=== PATIENT | female | born 1995 | race Caucasian/White ===

== ENCOUNTER 2023-08-16 15:34 | Emergency (ER) | payer BC ==
[2023-08-16] MEDS ORDERED: Adacel Vial IM ONE (16:28)
[2023-08-16] MEDS: Adacel Vial IM ONE (16:29)
--- NOTE | 2023-08-16 16:52 | ERPHSYRPT ---
- History of Present Illness Time Seen by Provider: 08/16/23 15:44 Source: patient Exam Limitations: no limitations Patient Subjective Stated Complaint: laceration to left index, cut on small knife Triage Nursing Assessment: pt alert, walked in, resp easy, skin w/d/p.has laceration to left indext finger, no bleeding Physician History: 27 years old [id number] female presented in the ER with a superficial cut left index finger distal phalanx with an executive knife while working at home. There was bleeding initially, stopped with applying pressure. No difficulty movements at interphalangeal joints. No distal numbness or tingling. No injury to the nail. Unsure about tetanus status. Allergies/Adverse Reactions: No Known Drug Allergies Allergy (Verified 08/16/23 15:43) Home Medications: Sertraline HCl 50 mg [Zoloft 50 mg Tablet] 50 mg PO DAILY 07/14/23 [History] buPROPion HCL [Wellbutrin Xl] 300 mg PO DAILY 07/14/23 [History] Hx Tetanus, Diphtheria Vaccination/Date Given: No Hx Influenza Vaccination/Date Given: No Hx Pneumococcal Vaccination/Date Given: No Immunizations Up to Date: Yes Travel Risk - International Travel Have you traveled outside of the country in past 3 weeks: No - Emerging Infectious Disease Are you exhibiting symptoms associated with any current EIDs: No - Review of Systems Constitutional: No Symptoms Ears, Nose, & Throat: No Symptoms Respiratory: No Symptoms Cardiac: No Symptoms Genitourinary Symptoms: No Symptoms Musculoskeletal: Injury Skin: Skin Lesions Neurological: No Symptoms - Past Medical History Pertinent Past Medical History: No Neurological History: No Pertinent History ENT History: No Pertinent History Cardiac History: No Pertinent History Respiratory History: No Pertinent History Endocrine Medical History: No Pertinent History Musculoskeletal History: No Pertinent History GI Medical History: No Pertinent History History: No Pertinent History Psycho-Social History: Anxiety, Depression Female Reproductive Disorders: No Pertinent History - Past Surgical History Past Surgical History: Yes Neuro Surgical History: No Pertinent History Cardiac: No Pertinent History Respiratory: No Pertinent History Gastrointestinal: No Pertinent History Genitourinary: No Pertinent History Musculoskeletal: No Pertinent History Female Surgical History: No Pertinent History Other Surgical History: lazy eye surgical repair at 5yo. wisdom teeth extract ion. - Female History Hx Last Menstrual Period: 5 days ago Hx Now: No - Social History Smoking Status: Former smoker Exposure to second hand smoke: No Drug Use: marijuana - Social Determinants of Health Will the patient participate in the screening: Yes Do you worry about a steady place to live?: No Do you have any problems with any of the following?: No known problems In the past 12 months,have you had to go without utilities?: No Transportation Issues: No Has anyone in your support network made you feel unsafe?: No Have you or anyone in your house had to go without enough: No - Nursing Vital Signs Nursing Vital Signs: Pain Scale Pain Intensity 0 - Physical Exam General Appearance: no apparent distress Eye Exam: PERRL/EOMI Neck Exam: normal inspection, full range of motion Respiratory Exam: normal breath sounds, lungs clear Cardiovascular Exam: regular rate/rhythm, normal heart sounds Extremity Exam: other (1.25 cm laceration left index finger anterolateral asp ect. No active spurting or oozing. Distal neurovascular intact. Intact range of motion at interphalangeal joints.) Neurologic Exam: alert, oriented x 3, cooperative Skin Exam: normal color SpO2 Interpretation: normal SpO2: 96 O2 Delivery: Room Air Procedures - Laceration/Wound Repair Left Finger Time of Procedure: 16:30 Wound Location: Left Wound Length (cm): 1.25 Wound's Depth, Shape: superficial, linear Wound Explored: clean Irrigated: Yes Hibiclens Prep: Yes Wound Repaired With: Steri-strips, Dermabond Layer Closure?: No Sterile Dressing Applied?: Yes Splint Applied?: No Ordered Tests: Medication Summary Discontinued Medications Generic Name Dose Route Start Last Admin Trade Name Manoj PRN Reason Stop Dose Admin Diphtheria/Tetanus/Acell Pertussis 0.5 ml 08/16/23 16:26 08/16/23 16:29 Tdap --Diph,Pertuss(Acell),Tet Vac/Pf 0.5 Ml Vial IM 08/16/23 16:27 0.5 ml .ONCE ONE Administration Diphtheria/Tetanus/Acell Pertussis Confirm 08/16/23 16:28 Tdap --Diph,Pertuss(Acell),Tet Vac/Pf 0.5 Ml Vial Administered 08/16/23 16:29 Dose 0.5 ml IM .STK-MED ONE - Progress Progress: improved Progress Note: 08/16/23 16:51 27 years old is evaluated for superficial laceration left index. No active bleeding or spurting. Clean wound. Discussed with patient about repair with sutures versus Dermabond and Steri-Strip and closure is done with Dermabond and Steri-Strip. Lawson taping done. Discussed signs symptoms of worsening/laceration care needing return to ER which she seems understanding. Tetanus is updated. Counseled pt/family regarding: diagnosis, need for follow-up Medical Desision Making - Risk of complications The pt has a mod risk of morbidity or mortality based on: Need for minor surgical intervention in patient with know risk factors - Departure Departure Disposition: Home Clinical Impression: Finger laceration Condition: Stable Critical Care Time: No Referrals: JAY CRAWFORD MD [Primary Care Provider] - Follow up with PCP 1 day Instructions: Laceration Repair With Glue (DC) Additional Instructions: Tylenol ibuprofen as needed. Avoid exertional activities. Follow-up with primary care for reevaluation. Return to ER for increasing pain swelling redness, discharge or if develop fever chills etc.
[2023-08-16 16:54] VITALS: O2SAT 96
== END 2023-08-16 16:58 | disposition home or self-care (01) ==
LOC: ED 15:34
DX: S61.211A Laceration without foreign body of left index finger without damage to nail, initial encounter (principal); W26.0XXA Contact with knife, initial encounter; Z79.899 Other long term (current) drug therapy; Z23 Encounter for immunization
CPT/HCPCS: 12001; 90471; 90715; 99282

== ENCOUNTER 2024-02-18 15:12 | Emergency (ER) | payer BC ==
--- NOTE | 2024-02-18 16:42 | ERPHSYRPT ---
- History of Present Illness Time Seen by Provider: 02/18/24 16:42 Source: patient, family Exam Limitations: no limitations Physician History: This 28-year-old white female patient who has a history of depression and anxiety and is a patient of Dr. Crawford who arrives by private vehicle with her significant other. Patient is concerned because of syncopal episodes x 3 in total. A few weeks ago patient had an episode of syncope. It was unexplained. She did not hit her head. Patient is not on any new medications. This past Sunday prior to arrival, she had 2 episodes. At that time she admits to drinking 2 alcohol drinks and having half a gummy of cannabis. She has noticed in the last few weeks she has had headaches. She currently has no chest pain. She is not short of breath. Her headache is mild. She has no visual changes. She has no abdominal pain. Her last menstrual period was on 02/14/2024 Severity: mild Modifying Factors: Improves With: nothing Associated Symptoms: headaches (Mild generalized), No vomiting, No abdominal pain, No shortness of breath, No cough, No chest pain, No weakness Allergies/Adverse Reactions: No Known Drug Allergies Allergy (Verified 02/18/24 16:34) Home Medications: Sertraline HCl 50 mg [Zoloft 50 mg Tablet] 50 mg PO DAILY 07/14/23 [History] buPROPion HCL [Wellbutrin Xl] 300 mg PO DAILY 07/14/23 [History] Hx Tetanus, Diphtheria Vaccination/Date Given: No Hx Influenza Vaccination/Date Given: No Hx Pneumococcal Vaccination/Date Given: No Travel Risk - International Travel Have you traveled outside of the country in past 3 weeks: No - Emerging Infectious Disease Are you exhibiting symptoms associated with any current EIDs: No - Review of Systems Constitutional: No Symptoms Eyes: No Symptoms Ears, Nose, & Throat: No Symptoms Respiratory: No Symptoms Cardiac: Syncope (2 days ago) Abdominal/Gastrointestinal: No Symptoms Genitourinary Symptoms: No Symptoms Musculoskeletal: No Symptoms Skin: No Symptoms Neurological: Headache Psychological: No Symptoms Endocrine: No Symptoms Hematologic/Lymphatic: No Symptoms Immunological/Allergic: No Symptoms All Other Systems: Reviewed and Negative - Past Medical History Pertinent Past Medical History: No Neurological History: No Pertinent History ENT History: No Pertinent History Cardiac History: No Pertinent History Respiratory History: No Pertinent History Endocrine Medical History: No Pertinent History Musculoskeletal History: No Pertinent History GI Medical History: No Pertinent History History: No Pertinent History Psycho-Social History: Anxiety, Depression Female Reproductive Disorders: No Pertinent History - Past Surgical History Past Surgical History: Yes Neuro Surgical History: No Pertinent History Cardiac: No Pertinent History Respiratory: No Pertinent History Gastrointestinal: No Pertinent History Genitourinary: No Pertinent History Musculoskeletal: No Pertinent History Female Surgical History: No Pertinent History Other Surgical History: lazy eye surgical repair at 5yo. wisdom teeth extraction. - Female History Hx Last Menstrual Period: 5 days ago - Social History Smoking Status: Former smoker Exposure to second hand smoke: No Drug Use: marijuana - Social Determinants of Health Will the patient participate in the screening: Yes Do you worry about a steady place to live?: No In the past 12 months,have you had to go without utilities?: No Transportation Issues: No Has anyone in your support network made you feel unsafe?: No Have you or anyone in your house had to go without enough: No - Nursing Vital Signs Nursing Vital Signs: Initial Vital Signs Pulse Rate 70 02/18/24 16:33 Blood Pressure 125/75 02/18/24 16:33 O2 Sat by Pulse Oximetry 100 02/18/24 16:33 Pain Scale Pain Intensity 4 - Physical Exam General Appearance: no apparent distress, alert, anxiety Eye Exam: PERRL/EOMI, eyes nml inspection Ears, Nose, Throat Exam: normal ENT inspection, moist mucous membranes Neck Exam: normal inspection, non-tender, supple, full range of motion Respiratory Exam: normal breath sounds, lungs clear, airway intact, No chest tenderness, No respiratory distress Cardiovascular Exam: regular rate/rhythm, normal heart sounds, normal peripheral pulses Gastrointestinal/Abdomen Exam: soft, normal bowel sounds, No tenderness Pelvic Exam: not done Rectal Exam: not done Back Exam: normal inspection, normal range of motion, No CVA tenderness, No vertebral tenderness Extremity Exam: normal inspection, normal range of motion, pelvis stable Neurologic Exam: alert, oriented x 3, cooperative, inside sales account executive II-XII nml as tested, nml cerebellar function, nml station & gait, sensation nml Skin Exam: normal color, warm, dry Lymphatic Exam: No adenopathy SpO2 Interpretation: normal O2 Delivery: Room Air - Course Nursing assessment & vital signs reviewed: Yes EKG Interpreted by Me: RATE (75), Sinus Rhythm, NORMAL AXIS, NORMAL INTERVALS, NORMAL QRS, Other (No acute ischemia on today's twelve-lead EKG. QTc is 428) Ordered Tests: Active Orders 24 hr Category Date Time Status EKG-ER Only STAT Care 02/18/24 17:02 Active Pulse Oximetry (ED) STAT Care 02/18/24 17:02 Active HEAD WITHOUT CONTRAST [CT] Stat Exams 02/18/24 17:02 Taken CBC W DIFF Stat Lab 02/18/24 17:10 Completed CMP Stat Lab 02/18/24 17:10 Completed ETHYL ALCOHOL Stat Lab 02/18/24 17:10 Completed HCG QUALITATIVE, SERUM Stat Lab 02/18/24 17:10 Completed UA W/RFX UR CULTURE Stat Lab 02/18/24 17:07 Completed Urine Triage Profile Stat Lab 02/18/24 17:07 Completed Holter Monitor ONCE RT 02/18/24 18:44 Active Lab/Rad Data: Laboratory Result Diagrams 02/18/24 17:10 02/18/24 17:10 Laboratory Results 02/18/24 02/18/24 02/18/24 Range/Units 17:10 17:10 17:10 WBC 5.0 (3.98-10.04) x10^3/uL RBC 4.44 (3.93-5.22) x10^6/uL Hgb 13.2 (11.2-15.7) g/dL Hct 39.3 (34.1-44.9) % MCV 88.5 (79.4-94.8) fL MCH 29.7 (25.6-32.2) pg MCHC 33.6 (32.2-35.5) g/dL RDW 11.8 (11.7-14.4) % Plt Count 251 (182-369) x10^3/uL MPV 10.1 (9.4-12.3) fL Gran % 60.8 (34.0-71.1) % Immature Gran % (Auto) 0.2 (0.001-0.429) % Nucleat RBC Rel Count 0.0 (0.00-0.2) % Eos # (Auto) 0.12 (0.04-0.36) x10^3/uL Immature Gran # (Auto) 0.01 (0.001-0.031) x10^3u/L Absolute Lymphs (auto) 1.53 (1.18-3.74) x10^3/uL Absolute Monos (auto) 0.29 (0.24-0.86) x10^3/uL Absolute Nucleated RBC 0.00 (0.00-0.012) x10^3u/L Lymphocytes % 30.4 (19.3-51.7) % Monocytes % 5.8 (4.7-12.5) % Eosinophils % 2.4 (0.7-5.8) % Basophils % 0.4 (0.1-1.2) % Absolute Granulocytes 3.06 (1.56-6.13) x10^3/uL Basophils # 0.02 (0.01-0.08) x10^3/uL Sodium 138 (135-145) mmol/L Potassium 4.1 (3.5-5.1) mmol/L Chloride 103 (98-107) mmol/L Carbon Dioxide 29 (22-30) mmol/L Anion Gap 9.7 (5-15) MEQ/L BUN 21 H (7-17) mg/dL Creatinine 1.01 (0.52-1.04) mg/dL Estimated GFR 78.3 ML/MIN Glucose 89 (74-106) mg/dL Calcium 9.5 (8.4-10.2) mg/dL Total Bilirubin 0.30 (0.2-1.3) mg/dL AST 40 H (14-36) U/L ALT 28 (0-35) U/L Alkaline Phosphatase 71 (38-126) U/L Serum Total Protein 7.3 (6.3-8.2) g/dL Albumin 4.6 (3.5-5.0) g/dL Serum HCG, Qual NEGATIVE (NEGATIVE) Urine Color (Yellow) Urine Appearance (Clear) Urine pH (4.6-8.0) Ur Specific [place] (1.005-1.030) Urine Protein (Negative) Urine Glucose (UA) (Negative) mg/dL Urine Ketones (Negative) Urine Blood (Negative) Urine Nitrite (Negative) Urine Bilirubin (Negative) Urine Urobilinogen (0.2) mg/dL Ur Leukocyte Esterase (Negative) U Hyaline Cast (Auto) (0-2) /LPF Urine Microscopic RBC (0-5) /HPF Urine Microscopic WBC (0-5) /HPF Ur Epithelial Cells (None Seen) /HPF Urine Bacteria (None Seen) /HPF Urine Culture Reflexed (NO) Urine Opiates Level (NEGATIVE) Ur Methadone (NEGATIVE) Urine Barbiturates (NEGATIVE) Ur Phencyclidine (PCP) (NEGATIVE) Urine Amphetamine (NEGATIVE) U Benzodiazepine Level (NEGATIVE) Urine Cocaine (NEGATIVE) Urine Marijuana (THC) (NEGATIVE) Ethyl Alcohol < 10 (0-10) mg/dL 02/18/24 02/18/24 Range/Units 17:07 17:07 WBC (3.98-10.04) x10^3/uL RBC (3.93-5.22) x10^6/uL Hgb (11.2-15.7) g/dL Hct (34.1-44.9) % MCV (79.4-94.8) fL MCH (25.6-32.2) pg MCHC (32.2-35.5) g/dL RDW (11.7-14.4) % Plt Count (182-369) x10^3/uL MPV (9.4-12.3) fL Gran % (34.0-71.1) % Immature Gran % (Auto) (0.001-0.429) % Nucleat RBC Rel Count (0.00-0.2) % Eos # (Auto) (0.04-0.36) x10^3/uL Immature Gran # (Auto) (0.001-0.031) x10^3u/L Absolute Lymphs (auto) (1.18-3.74) x10^3/uL Absolute Monos (auto) (0.24-0.86) x10^3/uL Absolute Nucleated RBC (0.00-0.012) x10^3u/L Lymphocytes % (19.3-51.7) % Monocytes % (4.7-12.5) % Eosinophils % (0.7-5.8) % Basophils % (0.1-1.2) % Absolute Granulocytes (1.56-6.13) x10^3/uL Basophils # (0.01-0.08) x10^3/uL Sodium (135-145) mmol/L Potassium (3.5-5.1) mmol/L Chloride (98-107) mmol/L Carbon Dioxide (22-30) mmol/L Anion Gap (5-15) MEQ/L BUN (7-17) mg/dL Creatinine (0.52-1.04) mg/dL Estimated GFR ML/MIN Glucose (74-106) mg/dL Calcium (8.4-10.2) mg/dL Total Bilirubin (0.2-1.3) mg/dL AST (14-36) U/L ALT (0-35) U/L Alkaline Phosphatase (38-126) U/L Serum Total Protein (6.3-8.2) g/dL Albumin (3.5-5.0) g/dL Serum HCG, Qual (NEGATIVE) Urine Color Yellow (Yellow) Urine Appearance Clear (Clear) Urine pH 7.0 (4.6-8.0) Ur Specific [place] <=1.005 (1.005-1.030) Urine Protein Negative (Negative) Urine Glucose (UA) Negative (Negative) mg/dL Urine Ketones Negative (Negative) Urine Blood Negative (Negative) Urine Nitrite Negative (Negative) Urine Bilirubin Negative (Negative) Urine Urobilinogen 0.2 (0.2) mg/dL Ur Leukocyte Esterase Negative (Negative) U Hyaline Cast (Auto) NONE SEEN (0-2) /LPF Urine Microscopic RBC 0-2 (0-5) /HPF Urine Microscopic WBC 0-2 (0-5) /HPF Ur Epithelial Cells None Seen (None Seen) /HPF Urine Bacteria None Seen (None Seen) /HPF Urine Culture Reflexed NO (NO) Urine Opiates Level NEGATIVE (NEGATIVE) Ur Methadone NEGATIVE (NEGATIVE) Urine Barbiturates NEGATIVE (NEGATIVE) Ur Phencyclidine (PCP) NEGATIVE (NEGATIVE) Urine Amphetamine NEGATIVE (NEGATIVE) U Benzodiazepine Level NEGATIVE (NEGATIVE) Urine Cocaine NEGATIVE (NEGATIVE) Urine Marijuana (THC) NEGATIVE (NEGATIVE) Ethyl Alcohol (0-10) mg/dL - Progress Progress: improved, re-examined Progress Note: 02/18/24 17:40 My medical decision making of the assignment of moderate complexity is based on review of the patient's past medical history, review of patient medication list, reviewed patient drug allergy list, history present illness and physical findings on examination. The workup in this patient includes urinalysis, urine test, urine drug triage, CBC, CMP, twelve-lead EKG, CT scan of the head. Likely, the patient will be placed on an outpatient 48-hour Holter monitor. Differential diagnosis includes but is not limited to dehydration, urinary tract infection, arrhythmia, anemia, , acute intracranial abnormality 02/18/24 19:17 I interpreted the patient's laboratory data results. Based on the laboratory data results, the patient does not have an acute, emergent medical issue. The CT scan of the head without contrast was interpreted by the radiologist and I reviewed the impression. The impression is normal head CT without contrast Counseled pt/family regarding: lab results, diagnosis, need for follow-up, rad results Medical Desision Making - Independent Historian Additional History obtained from: Relative/friend - Diagnostic Testing Diagnostic test were ordered, analyzed, and reviewed by me: Yes Radiological Interpretation: Reviewed by me, Teleradiologist Report - Risk of complications Minimal Risk: Minimal risk of morbidity - Departure Departure Disposition: Home Clinical Impression: Syncopal episodes Condition: Stable Critical Care Time: No Referrals: JAY CRAWFORD MD [Primary Care Provider] - Follow up/PCP as directed Additional Instructions: Drink plenty of fluids. Avoid alcohol or other types of intoxicants. Call your primary care provider tomorrow, 02/19/2024, to make arrangements for follow-up appointment for further evaluation and management. Wear the Holter monitor and follow the instructions in terms of use and when to return the monitor.
[2024-02-18 16:45] VITALS: RESP 18; TEMP 99.1
[2024-02-18 17:15] LABS: Absolute Neutrophil Ct (ANC) 3.06 x10^3/uL (1.56-6.13); BASOPHIL % 0.4 % (0.1-1.2); Basophil (Absolute #) 0.02 x10^3/uL (0.01-0.08); Eosinophil % 2.4 % (0.7-5.8); Eosinophil (Absolute #) 0.12 x10^3/uL (0.04-0.36); Hematocrit 39.3 % (34.1-44.9); Hemoglobin 13.2 g/dL (11.2-15.7); IMMATURE GRAN # 0.01 x10^3u/L (0.001-0.031); IMMATURE GRAN % 0.2 % (0.001-0.429); Lymphocyte (Absolute #) 1.53 x10^3/uL (1.18-3.74); Lymphocytes % 30.4 % (19.3-51.7); Mean Cell Volume 88.5 fL (79.4-94.8); Mean Corpuscular Hemoglobin 29.7 pg (25.6-32.2); Mean Corpuscular Hgb Concent. 33.6 g/dL (32.2-35.5); Mean Platelet Volume 10.1 fL (9.4-12.3); Monocyte (Absolute #) 0.29 x10^3/uL (0.24-0.86); Monocytes % 5.8 % (4.7-12.5); Neutrophil % 60.8 % (34.0-71.1); Platelet Count 251 x10^3/uL (182-369); Red Blood Count 4.44 x10^6/uL (3.93-5.22); Red Cell Distribution Width 11.8 % (11.7-14.4)
[2024-02-18 17:18] VITALS: O2SAT 98
[2024-02-18 17:28] LABS: ALBUMIN 4.6 g/dL (3.5-5.0); ALKALINE PHOSPHATASE 71 U/L (38-126); ANION GAP 9.7 MEQ/L (5-15); BLOOD UREA NITROGEN 21 mg/dL (7-17); CHLORIDE 103 mmol/L (98-107); Calcium 9.5 mg/dL (8.4-10.2); Carbon Dioxide 29 mmol/L (22-30); Creatinine 1 1.01 mg/dL (0.52-1.04); EST GLOMERULAR FILTRATION RATE 78.3 ML/MIN; ETHYL ALCOHOL < 10 mg/dL (0-10); Glucose 89 mg/dL (74-106); Potassium 4.1 mmol/L (3.5-5.1); SGOT/AST 40 U/L (14-36); SGPT/ALT 28 U/L (0-35); SODIUM 138 mmol/L (135-145); Total Protein 7.3 g/dL (6.3-8.2)
[2024-02-18 17:38] LABS: HCG SERUM TEST NEGATIVE (NEGATIVE)
[2024-02-18 17:43] LABS: Appearance Clear (Clear); Bacteria None Seen /HPF (None Seen); Bilirubin Negative (Negative); Blood Negative (Negative); Epithelial Cells None Seen /HPF (None Seen); Glucose, Urine Negative (Negative); Hyaline Casts NONE SEEN /LPF (0-2); Ketones Negative (Negative); Leukocyte Esterase Negative (Negative); Nitrite Negative (Negative); Protein,Urine Dip Negative (Negative); RBC 0-2 /HPF (0-5); Specific Gravity <=1.005 (1.005-1.030); Urobilinogen 0.2 mg/dL (0.2); WBC 0-2 /HPF (0-5)
[2024-02-18 17:55] LABS: Amphetamine,Urine NEGATIVE (NEGATIVE); Barbiturate,Urine NEGATIVE (NEGATIVE); Benzodiazepine,Urine NEGATIVE (NEGATIVE); Cocaine,Urine NEGATIVE (NEGATIVE); Methadone,Urine NEGATIVE (NEGATIVE); Opiate,Urine NEGATIVE (NEGATIVE); PCP,Urine NEGATIVE (NEGATIVE); THC,Urine NEGATIVE (NEGATIVE)
[2024-02-18 19:34] VITALS: BP 129/72; PULSE 77
--- NOTE | 2024-02-19 08:32 | XRAY ---
Indication: Syncope. Multiple contiguous axial images obtained through the head without contrast. Comparison: None Normal appearing brain parenchyma, ventricles, and bony calvarium. Visualized paranasal sinuses and mastoid air cells are clear. Impression: Normal CT head without contrast exam.
--- NOTE | 2024-02-25 09:20 | HOLTER ---
HOLTER MONITOR DATE OF PROCEDURE: 02/18/24 PROCEDURE: Holter monitor. REFERRING PHYSICIAN: Aris Chua MD and Eric Mclean MD REASON FOR EXAMINATION: Syncope. DESCRIPTION OF PROCEDURE: Patient underwent Holter monitor for about 48 hours starting on 02/18/2024, patient was predominantly in normal sinus rhythm with average rate of 83 beats per minute. The maximum rate was 146 beats per minute on 10:08 p.m. and the minimum rate was 55 beats per minute at 5:39 a.m. There were rare premature ventricular ectopies noted without evidence of any ventricular tachyarrhythmia. There were occasional premature atrial ectopies, 2 atrial couplets, and one 4-beat atrial run noted without evidence of any longer supraventricular tachyarrhythmia. There was no evidence of any long pauses nor blocks noted with the longest R/R interval was 1.8 seconds at 9:52 a.m. IMPRESSION: 1) NORMAL SINUS RHYTHM. 2) RARE PREMATURE VENTRICULAR CONTRACTIONS. 3) OCCASIONAL PREMATURE ATRIAL CONTRACTIONS, RARE ATRIAL COUPLETS, AND ONE 4-BEAT ATRIAL RUN.
== END 2024-02-18 19:34 | disposition home or self-care (01) ==
LOC: ED 15:12
DX: R55 Syncope and collapse (principal); R51.9 Headache, unspecified; Z79.899 Other long term (current) drug therapy
CPT/HCPCS: 36415; 70450; 80053; 80307; 81001; 82077; 84703; 85025; 93005; 93225; 94760; 99284; 99285